=== PATIENT | male | born 1980 | race Caucasian/White ===

== ENCOUNTER 2017-08-18 10:12 | Emergency (ER) | payer BC, OTHER ==
[~2017-08-18] VITALS: Ht 175.3 cm; Wt 71.2 kg
[2017-08-18 10:14] VITALS: TEMP 37.1; Ht 175.3 cm; Wt 71.2 kg
--- NOTE | 2017-08-18 10:47 | EMERGENCY ROOM VISIT NOTE ---
History Report prepared by Scribe: Belkys White Under the Supervision of: Dr. Alejandra Kaur M.D. First contact with patient: 10:21 Chief Complaint: FLU LIKE SX Stated Complaint: COUGH, FEVER, RASH History of Present Illness The patient is a 37 year old male who presents to the Emergency Room with complaints of persistent flu like symptoms for the past 1 week. He complains of a fever, minimally productive cough, generalized weakness, nasal congestion and body aches. His last temperature checked at home was approximately 100 degrees but he admits he does not have a thermometer. He is a non-smoker and denies any chest palpitations. The patient was recently in [place], [place] 1 week and states he returned home last . He notes he developed a rash on both sides of his neck several days ago. The patient reports he is generally pretty healthy. He did not receive a flu shot this year but is up to date with all of his previous immunizations. 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 A total of 10 systems reviewed and were otherwise negative. Past Medical & Surgical Medical Problems: (1) Pneumonia Family History Cancer Kidney disease Kidney stones Social History Smoking Status: Never Smoker Alcohol Use: occasionally Drug Use: none Marital Status: in relationship Housing Status: lives with significant other Occupation Status: employed Current/Historical Medications No Active Prescriptions or Reported Meds Allergies Coded Allergies: Grass (Unverified Allergy, Intermediate, SNEZZING/ITCHY WATERY EYES, ) POLLEN (Unverified Allergy, Intermediate, SNEZZING/ITCHING WATERY EYES, 08/18/17) Physical Exam Vital Signs Date Time Temp Pulse Resp B/P (MAP) Pulse Ox O2 Delivery O2 Flow Rate FiO2 08/18/17 12:20 62 20 117/70 97 08/18/17 10:14 37.1 81 18 121/85 96 Room Air Physical Exam Vital signs reviewed. General: Well-appearing 37 year old male, in no significant distress. HEENT: No scleral icterus, PERRLA, neck supple. Atraumatic. TM's are clear bilaterally. Posterior oropharynx is clear. Cardiovascular: Regular rate and rhythm, no extra sounds. Pulmonary: Clear to auscultation bilaterally, normal work of breathing. Abdomen: Soft, nontender, nondistended, positive bowel sounds. Musculoskeletal: Atraumatic, no peripheral edema. Neurologic: Patient awake alert and oriented x 3, full strength in all 4 extremities. Cranial nerves 2 through 12 grossly intact. Skin: Warm, dry, no rash Medical Decision & Procedures ER Provider Diagnostic Interpretation: Radiology results as stated below per my review and radiologist interpretation: TWO VIEW CHEST CLINICAL HISTORY: Cough. FINDINGS: PA and lateral chest radiographs are obtained. No prior studies are available for comparison at the time of dictation. The cardiomediastinal silhouette is unremarkable. The lungs and pleural spaces are clear. There is no pneumothorax. The bony thorax appears intact. IMPRESSION: No active disease in the chest. Electronically signed by: Johnny Morgan M.D. 08/18/2017 11:27 AM Laboratory Results Test 08/18/17 10:30 Influenza Type A (RT-PCR) Neg for Influ A (NEG) Influenza Type B (RT-PCR) Neg for Influ B (NEG) Laboratory results per my review. ED Course 1037: Past medical records reviewed. The patient was evaluated in room B5. A complete history and physical examination was performed. 1214: I reevaluated the patient. He is resting comfortably. I discussed his results and discharge instructions and he verbalized complete understanding and agreement. Medical Decision Differential diagnosis Influenza, other viral illness, pneumonia, urinary tract infection, metabolic abnormality, medication effect, cellulitis, meningitis, intra-abdominal source. This patient was evaluated and appeared to be in no significant distress. Physical examination is unrevealing. The patient was swabbed for influenza which is negative. He declined the need for any medications. Chest x-ray was performed and is clear. I suspect viral etiology for the patient's symptomatology. He was advised to Tylenol and ibuprofen as needed for pain or fever. He will drink plan of clear fluids. Patient will follow-up with his primary care physician for reevaluation and return to the ER for worsening of symptoms or any medical concerns. Medication Reconcilliation Current Medication List: was personally reviewed by me Blood Pressure Screening Patient's blood pressure: Normal blood pressure Blood pressure disposition: Did not require urgent referral Impression Primary Impression: Influenza-like symptoms Scribe Attestation The scribe's documentation has been prepared under my direction and personally reviewed by me in its entirety. I confirm that the note above accurately reflects all work, treatment, procedures, and medical decision making performed by me. Departure Information Dispostion Home / Self-Care Prescriptions No Active Prescriptions or Reported Meds Referrals No Doctor, Assigned (PCP) Patient Instructions My [facility] Additional Instructions Diagnosis: Influenza-like symptoms Tylenol 650 mg every 6 hours as needed for pain or fever. Ibuprofen 600 mg every 6 hours as needed for pain or fever with food. Drink plenty of clear fluids. Follow-up with your primary care physician this week for reevaluation. Return to the ER for worsening of symptoms or any medical concerns.
--- NOTE | 2017-08-18 11:29 | DIAGNOSTIC IMAGING REPORT ---
TWO VIEW CHEST CLINICAL HISTORY: Cough. FINDINGS: PA and lateral chest radiographs are obtained. No prior studies are available for comparison at the time of dictation. The cardiomediastinal silhouette is unremarkable. The lungs and pleural spaces are clear. There is no pneumothorax. The bony thorax appears intact. IMPRESSION: No active disease in the chest. Electronically signed by: Johnny Morgan M.D. 08/18/2017 11:27 AM Dictated Date/Time: 08/18/2017 11:27 AM
[2017-08-18 11:41] LABS: INFLUENZA A PCR Neg for Influ A (NEG); INFLUENZA B PCR Neg for Influ B (NEG)
[2017-08-18 12:20] VITALS: BP 117/70; PULSE 62; O2SAT 97
== END 2017-08-18 12:22 | disposition home or self-care (01) ==
LOC: C.EDB 10:14
DX: R50.9 Fever, unspecified (principal); R05 Cough; R53.1 Weakness; R09.81 Nasal congestion; Z87.01 Personal history of pneumonia (recurrent); Z80.9 Family history of malignant neoplasm, unspecified; Z84.1 Family history of disorders of kidney and ureter; Z91.048 Other nonmedicinal substance allergy status